=== PATIENT | female | born 1980 | race African-American/Black ===

== ENCOUNTER 2017-01-11 17:09 | Inpatient (IN) | payer OTHER ==
[~2017-01-11] VITALS: Ht 165.1 cm; Wt 68.0 kg
[2017-01-11 17:33] VITALS: BP 132/68
[2017-01-11 17:34] VITALS: BP 132/68
[2017-01-11 18:53] LABS: EOSINOPHIL (%) 0 % (0-5); HEMATOCRIT 34.2 % (36.0-46.0); IMMATURE GRANULOCYTE (%) 0.3 % (0.0-0.7); INSTRUMENT ABS NEUTROPHIL CT 8.7 K/uL; LYMPHOCYTE COUNT 1.1 K/uL (1.0-2.8); MCH 31.4 PG (29.0-34.0); MCHC 33.6 G/DL (30.0-36.0); MCV 93.4 FL (83-99); MEAN PLAT.VOLUME 9.8 uM^3 (9.5-12.4); MONOCYTE (%) 2.5 % (3-12); MONOCYTE COUNT 0.3 K/uL (0-0.8); NEUTROPHIL (%) 86.6 % (45-76); NEUTROPHIL COUNT 8.7 K/uL (1.8-6.4); PLATELET COUNT 216 K/uL (156-360); RBC DIS.WIDTH-CV 13.2 % (11.8-14.6); RBC DIS.WIDTH-SD 45.3 % (39-53); RED BLOOD COUNT 3.66 M/uL (3.80-5.20); WHITE BLOOD COUNT 10.1 K/uL (4.1-10.2)
[2017-01-11 18:56] LABS: ADD MIUA? YES; BILIRUBIN NEGATIVE; BLOOD NEGATIVE; COLOR YELLOW ((YELLOW)); GLUCOSE (STRIP) NEGATIVE; KETONES 80; LEUKOCYTES NEGATIVE; NITRITE NEGATIVE; PROTEIN (STRIP) 30; SPECIFIC GRAVITY 1.021 (1.000-1.030); UROBILINOGEN 0.2 MG/DL (0.2-1.0)
[2017-01-11 19:06] VITALS: BP 130/65
[2017-01-11 19:24] LABS: BACTERIA RARE /HPF; EPITHELIAL CELLS RARE /HPF; HYALINE CASTS 0-5 /LPF; MUCUS 2+ /LPF; RED BLOOD CELLS 0-5 /HPF (0-5); UCUL ADDED? NO; WHITE BLOOD CELLS 0-5 /HPF (0-5)
[2017-01-11 19:25] LABS: ANTI-HIV (AIDS STAT TEST) NONREACTIVE; INTERNAL CONTROL VALID? YES
[2017-01-11 21:22] VITALS: BP 111/62
[2017-01-12 02:25] VITALS: BP 110/66
[2017-01-12 02:57] VITALS: BP 118/67
[2017-01-12 07:12] LABS: EOSINOPHIL (%) 0 % (0-5); HEMATOCRIT 31.9 % (36.0-46.0); IMMATURE GRANULOCYTE (%) 0.6 % (0.0-0.7); IMMATURE GRANULOCYTE COUNT 0.1 K/uL; INSTRUMENT ABS NEUTROPHIL CT 10.4 K/uL; LYMPHOCYTE COUNT 1.2 K/uL (1.0-2.8); MCH 31.5 PG (29.0-34.0); MCHC 33.5 G/DL (30.0-36.0); MCV 93.8 FL (83-99); MEAN PLAT.VOLUME 10.1 uM^3 (9.5-12.4); MONOCYTE (%) 5.6 % (3-12); MONOCYTE COUNT 0.7 K/uL (0-0.8); NEUTROPHIL (%) 83.9 % (45-76); NEUTROPHIL COUNT 10.4 K/uL (1.8-6.4); PLATELET COUNT 191 K/uL (156-360); RBC DIS.WIDTH-CV 13.2 % (11.8-14.6); RBC DIS.WIDTH-SD 45.1 % (39-53); WHITE BLOOD COUNT 12.4 K/uL (4.1-10.2)
[2017-01-12 07:59] VITALS: BP 115/66
[2017-01-12 10:03] VITALS: BP 110/65
[2017-01-12 10:26] LABS: HBSG INDEX 0.21
[2017-01-12 10:27] LABS: HIV INDEX 0.09; HIV-1/2 AB/AG COMBO Nonreactive
[2017-01-12 12:03] VITALS: BP 133/72
[2017-01-12 13:47] LABS: TREPONEMA ANTIBODY NEGATIVE (NEGATIVE)
[2017-01-12 15:34] VITALS: BP 136/80
[2017-01-13 07:25] VITALS: BP 115/66
[2017-01-13 11:55] VITALS: BP 126/72
[2017-01-13 15:45] VITALS: BP 127/74
[2017-01-14 08:00] VITALS: BP 120/73
[2017-01-14 11:00] VITALS: BP 129/67
[2017-01-14 15:00] VITALS: BP 136/81
[2017-01-14 22:02] VITALS: BP 122/78
[2017-01-15] MEDS ORDERED: ENDOCET 5-3251 EACH PO (09:42)
[2017-01-15] MEDS ORDERED: ZANTAC150 MG PO (09:42)
[2017-01-15] MEDS ORDERED: IBUPROFEN800 MG PO (09:42)
== END 2017-01-15 17:47 | disposition home or self-care (01) | DRG 766 ==
LOC: LDRP-OP 17:09 → 2WEST 17:12
PROVIDERS: Advanced Practice Midwife; Obstetrics & Gynecology
PROC: 10D00Z1 Extraction of Products of Conception, Low, Open Approach (ICD-10-PCS; principal; 2017-01-12)
DX: O34.211 Maternal care for low transverse scar from previous cesarean delivery (principal); O77.0 Labor and delivery complicated by meconium in amniotic fluid; O99.62 Diseases of the digestive system complicating childbirth; K21.9 Gastro-esophageal reflux disease without esophagitis; Z3A.38 38 weeks gestation of pregnancy; Z37.0 Single live birth
CPT/HCPCS: 81003; 83030; 85025; 85025 91; 86703; 86762; 86780; 86850; 86900; 86901; 87086; 87340; G0378; J1100; J1885; J2270; J2274; J2405; J2790; J7120